=== PATIENT | male | born 1975 ===

== ENCOUNTER 2022-11-22 09:45 | Day surgery (SDC) | payer BC ==
[2022-11-19 15:12] VITALS: BMI 30.9
[2022-11-22 11:32] VITALS: RESP 18; TEMP 97.7
[2022-11-22 11:58] VITALS: BP 110/75; PULSE 72
== END 2022-11-22 11:58 | disposition home or self-care (01) ==
LOC: FASU-ENDO 09:45
PROVIDERS: ATTEND Internal Medicine Gastroenterology
PROC: 0DBN8ZX Excision of Sigmoid Colon, Via Natural or Artificial Opening Endoscopic, Diagnostic (ICD-10-PCS; principal; 2022-11-22 11:12)
DX: Z12.11 Encounter for screening for malignant neoplasm of colon (principal); K63.5 Polyp of colon
CPT/HCPCS: 88305-TC